=== PATIENT | female | born 1970 | race American Indian/Alaskan Native ===

== ENCOUNTER 2017-12-28 11:12 | Emergency (ER) | payer BC, OTHER ==
[2017-12-28 11:44] VITALS: BP 134/90; PULSE 80; TEMP 98.3; BMI 24.3
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
== END 2017-12-28 12:32 | disposition home or self-care (01) ==
LOC: JERFT 11:12
DX: S13.4XXA Sprain of ligaments of cervical spine, initial encounter (principal); V43.52XA Car driver injured in collision with other type car in traffic accident, initial encounter; Y92.488 Other paved roadways as the place of occurrence of the external cause; Y93.89 Activity, other specified; Y99.8 Other external cause status
CPT/HCPCS: 99281-25